=== PATIENT | female | born 1990 | race Caucasian/White ===

== ENCOUNTER 2017-08-21 13:52 | Emergency (ER) | payer MEDICAID ==
[~2017-08-21] VITALS: Ht 160 cm; Wt 46.7 kg
[~2017-08-21 13:52] MED LIST: NO HOME MEDS; ONDA4TAB6 PO
[2017-08-21 13:55] VITALS: BP 126/81
[2017-08-21] MEDS ORDERED: AMOX-422 PO (14:54)
== END 2017-08-21 15:03 | disposition home or self-care (01) ==
LOC: ER 13:52
DX: J01.10 Acute frontal sinusitis, unspecified (principal); J01.00 Acute maxillary sinusitis, unspecified; B96.89 Other specified bacterial agents as the cause of diseases classified elsewhere; F15.90 Other stimulant use, unspecified, uncomplicated; F11.90 Opioid use, unspecified, uncomplicated; Z56.0 Unemployment, unspecified; Z88.2 Allergy status to sulfonamides
CPT/HCPCS: 99283

== ENCOUNTER 2017-10-26 16:35 | Emergency (ER) | payer MEDICAID ==
[~2017-10-26] VITALS: Ht 160 cm; Wt 45.5 kg
[2017-10-26] MEDS ORDERED: CEPH500C5 PO (17:32)
[2017-10-26 17:37] VITALS: BP 124/74
== END 2017-10-26 17:39 | disposition home or self-care (01) ==
LOC: ER 16:36
DX: L03.317 Cellulitis of buttock (principal); L02.31 Cutaneous abscess of buttock; F15.90 Other stimulant use, unspecified, uncomplicated; F11.90 Opioid use, unspecified, uncomplicated; Z88.2 Allergy status to sulfonamides; Z79.899 Other long term (current) drug therapy; Z56.0 Unemployment, unspecified
CPT/HCPCS: 10060; 99283

== ENCOUNTER 2018-01-14 16:47 | Emergency (ER) | payer MEDICAID ==
[~2018-01-14] VITALS: Ht 160 cm; Wt 45.5 kg
[~2018-01-14 16:47] MED LIST changes: +CEPH500C5 PO
[2018-01-14 17:15] VITALS: BP 111/70
[2018-01-14] MEDS ORDERED: ondansetron 4mg rapidly disintigrating tab PO ONE (17:30)
[2018-01-14] MEDS ORDERED: clindamycin 150mg capsule PO ONE (17:30)
[2018-01-14] MEDS ORDERED: ibuprofen tablet 400 MG TABLET PO ONE (17:30)
[2018-01-14] MEDS ORDERED: acetaminophen 325mg tablet PO ONE (17:30)
[2018-01-14] MEDS ORDERED: bacitracin 15gm ointment TP ONE (17:35)
[2018-01-14] MEDS ORDERED: CLIN150C2 PO (18:02)
== END 2018-01-14 18:15 | disposition home or self-care (01) ==
LOC: ER 16:48
DX: L02.31 Cutaneous abscess of buttock (principal); L03.317 Cellulitis of buttock; F15.90 Other stimulant use, unspecified, uncomplicated; F11.90 Opioid use, unspecified, uncomplicated; Z88.2 Allergy status to sulfonamides; Z79.2 Long term (current) use of antibiotics; Z79.899 Other long term (current) drug therapy; Z56.0 Unemployment, unspecified
CPT/HCPCS: 10060; 99284

== ENCOUNTER 2018-06-28 16:10 | Emergency (ER) | payer MEDICAID ==
[~2018-06-28] VITALS: Ht 160 cm; Wt 45.0 kg
[2018-06-28 16:31] VITALS: BP 120/82
[2018-06-28] MEDS ORDERED: LIDOcaine 1% w/epiNEPHrine 1:200,000 30ml vial IM ONE (17:10)
[2018-06-28] MEDS ORDERED: ibuprofen tablet 400 MG TABLET PO ONE (17:10)
[2018-06-28] MEDS ORDERED: DOXY100C43 PO (17:17)
[2018-06-28] MEDS ORDERED: CEPH250T PO (17:17)
== END 2018-06-28 18:32 | disposition home or self-care (01) ==
LOC: ER 16:10
DX: L02.416 Cutaneous abscess of left lower limb (principal); F15.90 Other stimulant use, unspecified, uncomplicated; F11.90 Opioid use, unspecified, uncomplicated; Z86.14 Personal history of Methicillin resistant Staphylococcus aureus infection; Z56.0 Unemployment, unspecified; Z88.2 Allergy status to sulfonamides; Z79.899 Other long term (current) drug therapy
CPT/HCPCS: 10060; 99283; J3490

== ENCOUNTER 2019-03-11 01:17 | Emergency (ER) | payer MEDICAID ==
[~2019-03-11] VITALS: Ht 160 cm; Wt 46.0 kg
[~2019-03-11 01:17] MED LIST changes: +CEPH250T PO; -CEPH500C5 PO
[2019-03-11 01:23] VITALS: BP 119/79
[2019-03-11] MEDS ORDERED: CEPH-572 PO (02:27)
[2019-03-11] MEDS ORDERED: CLIN150C2 PO (02:27)
== END 2019-03-11 02:43 | disposition home or self-care (01) ==
LOC: ER 01:18
DX: L02.415 Cutaneous abscess of right lower limb (principal); L03.115 Cellulitis of right lower limb; F19.10 Other psychoactive substance abuse, uncomplicated; F15.90 Other stimulant use, unspecified, uncomplicated; F11.90 Opioid use, unspecified, uncomplicated; Z86.14 Personal history of Methicillin resistant Staphylococcus aureus infection; Z56.0 Unemployment, unspecified; Z88.2 Allergy status to sulfonamides; Z79.899 Other long term (current) drug therapy
CPT/HCPCS: 10060; 99283

== ENCOUNTER 2022-03-07 18:47 | Emergency (ER) | payer MEDICAID ==
[~2022-03-07 18:47] MED LIST changes: -CEPH250T PO
== END 2022-03-07 20:15 | disposition left against medical advice (07) ==
LOC: ER 18:47
DX: R22.0 Localized swelling, mass and lump, head (principal); Z53.21 Procedure and treatment not carried out due to patient leaving prior to being seen by health care provider

== ENCOUNTER 2024-02-26 14:52 | Emergency (ER) | payer MEDICAID ==
[~2024-02-26] VITALS: Ht 160 cm; Wt 47.3 kg
[2024-02-26] MEDS ORDERED: CLIN-97 PO (17:08)
[2024-02-26 17:16] VITALS: BP 108/88; PULSE 80; RESP 16; TEMP 98.8; O2SAT 98
== END 2024-02-26 17:17 | disposition home or self-care (01) ==
LOC: ER 14:52
DX: K04.7 Periapical abscess without sinus (principal); F15.90 Other stimulant use, unspecified, uncomplicated; Z88.2 Allergy status to sulfonamides
CPT/HCPCS: 99283